=== PATIENT | male | born 1940 | race Two or more races ===

== ENCOUNTER 2021-06-20 16:32 | Inpatient (IN) | payer OTHER ==
[~2021-06-20] VITALS: Ht 165.1 cm; Wt 59.0 kg
[2021-06-20] MEDS ORDERED: XARELTO10 MG (17:04)
--- NOTE | 2021-06-20 17:04 | NUR ---
PATIENT IS RECIEVED WITH A LACERATION ON LEFT THIGH AFTER ACIDENTALLY CUTTING HIMSELF WITH A SAW WHILE WORKING.
[2021-06-20] MEDS ORDERED: GLIPIZIDE XL5 MG (17:06)
[2021-06-20] MEDS ORDERED: LOSARTAN POTASS25 MG (17:06)
[2021-06-21] MEDS ORDERED: PANTOPRAZOLE SO40 MG (11:29)
[2021-06-21] MEDS ORDERED: ESTAZOLAM2 MG (11:29)
[2021-06-21] MEDS ORDERED: METHOTREXATE2.5 MG (11:29)
[2021-06-21] MEDS ORDERED: RAYOS5 MG (11:30)
[2021-06-21] MEDS ORDERED: DICLOFENAC SOD100 MG (11:30)
[2021-06-21] MEDS ORDERED: FOLIC ACID1 MG (11:30)
[2021-06-21] MEDS ORDERED: PRAVASTATIN SOD20 MG (11:30)
[2021-06-22] MEDS ORDERED: AMOX1TAB5 PO (13:47)
== END 2021-06-22 15:17 | disposition home or self-care (01) | DRG 571 ==
LOC: ER 16:32 → O/R 18:52 → SURG 22:58
PROVIDERS: ADMIT Surgery; ATTEND Surgery
PROC: 0JQP0ZZ Repair Left Lower Leg Subcutaneous Tissue and Fascia, Open Approach (ICD-10-PCS; 2021-06-20)
PROC: 0JBP0ZZ Excision of Left Lower Leg Subcutaneous Tissue and Fascia, Open Approach (ICD-10-PCS; principal; 2021-06-20 19:45)
DX: S71.112A Laceration without foreign body, left thigh, initial encounter (principal); S75.8 Injury of other blood vessels at hip and thigh level; I10 Essential (primary) hypertension; Z86.72 Personal history of thrombophlebitis; Z20.822 Contact with and (suspected) exposure to COVID-19